=== PATIENT | female | born 1970 | race Caucasian/White ===

== ENCOUNTER → 2017-01-26 | Outpatient (CLI) | payer OTHER ==
[~2017-01-26] MED LIST: IBUP-1222 PO; No meds per pt.; OXYC-302 PO; no meds per pt.
[2017-01-26 09:00] LABS: HEMATOCRIT 43.7 % (34.6-47.8); WHITE BLOOD COUNT 6.8 x10^3/uL (3.4-10)
[2017-01-26 09:24] LABS: ASPARTATE AMINO TRANSFERASE 17 U/L (15-37); BLOOD UREA NITROGEN 12 mg/dL (7-18)
== END ==
LOC: LAB 08:38
PROVIDERS: ATTEND Registered Nurse
DX: Z08 Encounter for follow-up examination after completed treatment for malignant neoplasm (principal); Z13.220 Encounter for screening for lipoid disorders; R53.83 Other fatigue; R63.5 Abnormal weight gain; R79.89 Other specified abnormal findings of blood chemistry
CPT/HCPCS: 36415; 80053; 80061; 82306; 83001; 83002; 84436; 84443; 84481; 85025

== ENCOUNTER → 2019-12-06 | Outpatient (CLI) | payer OTHER | END | disposition home or self-care (01) | LOC: CFH 14:55 | PROVIDERS: ATTEND Internal Medicine | DX: Z12.31 Encounter for screening mammogram for malignant neoplasm of breast (principal) | CPT/HCPCS: 77063; 77067 ==